=== PATIENT | female | born 1980 | race Caucasian/White ===

== ENCOUNTER → 2017-07-16 | Outpatient (CLI) | payer OTHER ==
[2013-02-28 18:43] VITALS: BP 123/79
--- NOTE | 2017-07-16 13:50 | US ---
HISTORY: Abdominal pain. Study: Right upper quadrant abdominal ultrasound Comparison: None. Technique: Multiple jimenez scale and color flow Doppler images of the right upper quadrant were obtaine d. Findings: The liver is normal in echotexture and size. No focal intraparenchymal mass or intrahepatic biliary ductal dilatation can be observed. The gallbladder fails to demonstrate evidence for cholelithiasis or layering sludge. There is a 5 mm gallbladder polyp seen. The common bile duct is unremarkable sonu uring 3 mm. No pericholecystic fluid or gallbladder wall thickening can be observed. The CBD measure s within normal limits. The right kidney appears normal in size without focal parenchymal mass or nep hrolithiasis. The right kidney measurers 12 x 5 x 4 cm. No hydronephrosis or perirenal fluid can be observed. The pancreatic head and body are unremarkable. The pancreatic tail is largely obscured b y overlying bowel gas. IMPRESSION: 5 mm intraluminal gallbladder polyp which can be followed up sonographically in 6-12 months for leenana perez. No evidence for acute cholecystitis, however. No other right upper quadrant sonographic abnormalities are identified. Reported By:
== END | disposition home or self-care (01) ==
LOC: RAD 08:21
PROVIDERS: ATTEND Nurse Practitioner Family
DX: R10.11 Right upper quadrant pain (principal); K82.4 Cholesterolosis of gallbladder
CPT/HCPCS: 76705

== ENCOUNTER → 2017-07-26 | Outpatient (CLI) | payer OTHER ==
[2013-02-28 18:43] VITALS: BP 123/79
--- NOTE | 2017-07-26 11:19 | NM ---
HISTORY: Abdominal pain Study: Nuclear medicine HIDA scan with ejection fraction Comparison: None Technique: Multiple scintigraphic images of the abdomen were obtained the intravenous administration of 8.2 mCi of technetium labeled Choletec. Following distention of the gallbladder with radiotracer the patient received a fatty meal. An estim ated gallbladder ejection fraction was calculated based on the physiologic response of this infusion. Findings: Homogeneous uptake of radiotracer is seen throughout the liver. This intrabiliary ductal system is o bserved normally. The common hepatic and common bile duct grossly appear unremarkable with normal bi liary-bowel transit. The gallbladder is observed to fill normally. After the fatty meal a gallbladder ejection fraction of 29.2% (normal > 35%) is observed. IMPRESSION: 1. Normal hepatobiliary imaging scan. 2. Abnormal gallbladder ejection fraction 29.2% Reported By:
== END ==
LOC: RAD 08:38
PROVIDERS: ATTEND Nurse Practitioner Family
DX: R10.11 Right upper quadrant pain (principal)
CPT/HCPCS: 78227

== ENCOUNTER 2017-08-11 08:02 | Day surgery (SDC) | payer BC, OTHER ==
[2017-08-11] MEDS ORDERED: NS 1000 ML 2,000 ML ONE (08:22)
[2017-08-11] MEDS ORDERED: NS 100 ML IV 100 ML IV ONE (08:22)
[2017-08-11] MEDS ORDERED: ANCEF VIAL 1 GM ONE (08:23)
[2017-08-11] MEDS ORDERED: FENTANYL INJ 250 mcg ONE (09:21)
[2017-08-11] MEDS ORDERED: EPHEDRINE SULFATE INJ ONE (09:25)
[2017-08-11] MEDS ORDERED: ROBINUL ONE (09:25)
[2017-08-11] MEDS ORDERED: SUPRANE IN ONE (09:25)
[2017-08-11] MEDS ORDERED: NEOSTIGMINE INJ ONE (09:25)
[2017-08-11] MEDS ORDERED: XYLOCAINE 2 % (PLAIN) ONE (09:25)
[2017-08-11] MEDS ORDERED: NORCURON INJ 10 MG VIAL ONE (09:25)
[2017-08-11] MEDS ORDERED: LTA KIT LIDOCAINE 4% ONE (09:25)
[2017-08-11] MEDS ORDERED: VERSED ONE (09:25)
[2017-08-11] MEDS ORDERED: DIPRIVAN VIAL ONE (09:25)
[2017-08-11] MEDS ORDERED: QUELICIN (OR ANECTINE) ONE (09:25)
[2017-08-11] MEDS ORDERED: ZOFRAN INJ 4 MG VIAL ONE (09:25)
[2017-08-11] MEDS ORDERED: XYLOCAINE 1 % (PLAIN) ONE (09:49)
[2017-08-11] MEDS ORDERED: MARCAINE 0.25% INJ ONE (09:49)
[2017-08-11] MEDS ORDERED: DECADRON INJ ONE (11:06)
[2017-08-11] MEDS ORDERED: LR 1000 ML IV 1,000 ML IV ONE (11:37)
[2017-08-11] MEDS ORDERED: NS IRRIGATION 3000 ML 3,000 ML IR ONE (11:41)
[2017-08-11] MEDS ORDERED: REGLAN INJ 10 MG VIAL IVP PRN (12:30)
[2017-08-11] MEDS ORDERED: BENADRYL INJ 50 MG VIAL IVP PRN (12:30)
[2017-08-11] MEDS ORDERED: DILAUDID INJ IVP PRN (12:30)
[2017-08-11] MEDS ORDERED: PHENERGAN INJ 25 MG IVP PRN (12:30)
[2017-08-11] MEDS ORDERED: ZOFRAN INJ 4 MG VIAL IVP PRN (12:30)
--- NOTE | 2017-08-11 12:40 | OR.GENERIC ---
Post-Op Note Generic - Post-Op Note Operative Report: Operative Report Date of Operation: August 11, 2017 Pre-Operative Diagnosis: Biliary dyskinesia. Post-Operative Diagnosis: 1. Chronic cholecystitis. 2. Biliary dyskinesia. Procedure: Laparoscopic cholecystectomy. Surgeon: Casey Smalls MD. Ballistics Tester: Jose De Jesus Dahl CRNA. Specimen: Gallbladder. Estimated blood loss: Minimal. Complications: None. Summary: The patient is a 37 year old female who presented with biliary dyskinesia. The patient was offered cholecystectomy. The risk and benefits of the procedure including difficulty with anesthesia, bleeding, infection, conversion to open procedure, bile leak, hernia formation, DVT, as well as PE were discussed with the patient. The patient understood these risks and requested the procedure. On August 11, 2017, the patient was brought to the operative theatre. A time out was performed verifying the patient and procedure. The patient received Ancef for pre-operative antibiosis. After satisfactory induction of general endotracheal anesthesia, the abdomen was prepped with Chloraprep and draped in the usual sterile fashion. The skin and subcutaneous tissue inferior to the umbilicus was anesthetized using local anesthetic. The skin was incised sharply. A 12 mm trocar was placed though the incision and into the peritoneal cavity using the Optiview technique. Carbon dioxide was infiltrated through this trocar to obtain a pneumoperitoneum of 15 mm Hg. A camera was placed through this trocar and swept in all directions. No injury was seen from entering the peritoneal cavity. A site was selected in the subxiphoid location for our 2nd trocar. The skin and fascia was anesthetized using local anesthetic. The skin was incised sharply. A 5 mm trocar was placed into the peritoneal cavity under direct visualization. In a similar manner, two additional 5 mm trocars were placed. The first was placed in the mid- clavicular line approximately 2 fingerbreadths inferior to the left costal margin and a second in the anterior axillary line approximately 2 fingerbreadths inferior to the left costal margin. The patient was placed in reverse Trendelenburg and rotated to the patients left. The gallbladder was grasped at the fundus and elevated cephalad and slightly lateral. Omental attachments were taken down using blunt dissection and electrocautery. The peritoneum on the medial and lateral aspects of the infundibulum of the gallbladder was scored using hook electrocautery. Using blunt dissection, the cystic artery and duct were isolated. The critical view of safety was obtained. The artery was noted to divide just proximal to the gallbladder. Both of these structures were divided between endoclips. The gallbladder was dissected free using hook electrocautery. The gallbladder was placed in an endobag and removed through the umbilical trocar site without difficulty. The trocar and camera were placed back inside the abdomen. Our clips were noted in good position. Bleeding of the gallbladder fossa was controlled using electrocautery. At this point, the 5 mm trocars were removed under direct visualization. No bleeding was seen. The umbilical trocar was then removed and pneumoperitoneum released. The fascia at the umbilicus was closed using a 0 -Vicryl placed in a [id number] configuration. The skin edges at all incisions were re-approximated using inverted, interrupted 4-0 Monocryl sutures. Mastisol and Steri-strips were placed. Sterile dressings were placed. The patient was awakened and taken to the recovery room in stable condition. There were no complications. All counts were correct.
[2017-08-11] MEDS: DILAUDID INJ ONE ×2 (12:50→13:35)
[2017-08-11] MEDS ORDERED: PHENERGAN INJ 25 MG ONE (13:17)
[2017-08-11 14:56] VITALS: BP 111/63
== END 2017-08-11 13:55 | disposition home or self-care (01) | DRG 419 ==
LOC: SURG1 08:02
PROVIDERS: ATTEND Student in an Organized Health Care Education/Training Program
PROC: 0FT44ZZ Resection of Gallbladder, Percutaneous Endoscopic Approach (ICD-10-PCS; principal; 2017-08-11 09:00)
DX: K82.8 Other specified diseases of gallbladder (principal); K81.1 Chronic cholecystitis
CPT/HCPCS: A4216; A4222; S0020; J0330; J0690; J1100; J1170; J2001; J2250; J2405; J2550; J2710; J3010; J3490; J7120